=== PATIENT | female | born 1985 | race Two or more races ===

== ENCOUNTER 2024-05-05 06:11 | Emergency (ER) | payer OTHER, SELFPAY ==
[2024-05-05 06:13] VITALS: BP 110/80
--- NOTE | 2024-05-05 06:34 | ED.GENMED ---
History of Present Illness
General
Chief Complaint: Abdominal Pain
Source: patient
Exam Limitations: none
Time Seen by Provider: 05/05/24 06:30
History of Present Illness
History of Present Illness:
See MDM
Past History
Past History
ED Past Medical History: None
ED Past Surgical History: Other (Bariatric surgery)
Social History
Tobacco: Non-smoker
Alcohol: None
Phy Exam
Physical Exam
Physical Exam:
See MDM
Course
Orders/Labs/Results
Orders:
Orders
05/05/24 06:33
CT Abd/pel Without Iv Or Oral Urgent
Comment:
Reason For Exam: R flank and RLQ pain
Ketorolac [Toradol] 30 mg IV NOW STA
Morphine Sulfate 4 mg IV NOW STA
Ondansetron Injectable [Zofran] 4 mg IV NOW STA
05/05/24 06:34
Test Result ONCE
05/05/24 06:51
Complete Blood Count/With Diff Urgent
Comprehensive Metabolic Panel Urgent
HCG, Serum Qualitative Screen Urgent
05/05/24 08:23
Urinalysis Reflex To Culture Urgent
Date Specimen was Collected: 05/05/24
Time Specimen was Collected: 08:09
Urine Microscopic Reflex Cult Urgent
Urine Culture Urgent
BARRY Source: U
Specimen Description:
Date Specimen was Collected: 05/05/24
Time Specimen was Collected: 08:09
05/05/24 08:26
Morphine Sulfate 4 mg IV NOW STA
Abnormal Lab Results
05/05/24 05/05/24
06:51 08:23
Hgb 11.1 L g/dL
(12.0-16.0)
Hct 35.6 L %
(37.0-47.0)
MCV 74.6 L fL
(81.0-99.0)
MCH 23.3 L pg
(27.0-31.0)
MCHC 31.2 L g/dL
(33.0-37.0)
RDW 15.2 H %
(11.5-14.5)
Neutrophils % 39.0 L %
(42.2-75.2)
BUN 20 H mg/dl
(7-17)
Glucose 106 H mg/dl
(70-99)
Urine Ketones Trace A
(Negative)
Ur Occult Blood Reflex 3+ A
(Negative)
Urine Bilirubin 1+ A
(Negative)
Urine RBC 7-10 A /HPF
(0-2)
Urine Bacteria (Reflex) Moderate A
(Negative)
05/05/24 06:51
05/05/24 06:51
Vital Signs
Initial and Last Documented VS:
Initial Vital Signs
Pulse Resp BP Pulse Ox
61 16 110/80 100
05/05/24 06:13 05/05/24 06:13 05/05/24 06:13 05/05/24 06:13
Last Documented Vital Signs
Temp Pulse Resp BP Pulse Ox
98.2 F 58 17 106/71 97
05/05/24 06:17 05/05/24 08:34 05/05/24 08:34 05/05/24 08:34 05/05/24 08:34
MDM/Problems Addressed
Differential Diagnosis Includes:
HPI and MDM Narrative:
38-year-old female presenting for evaluation of sudden onset of right flank pain. Patient localizes the pain to the right lower quadrant. She also complains of right back pain. This is associated with nausea. She denies urinary symptoms or
fevers.
Given the location of pain and the sudden onset, will obtain CT to rule out evidence of kidney stone
Physical exam
General: Mildly uncomfortable
HEENT: protecting airway
Neck: appears supple
CV: No evidence of cyanosis
Resp: No accessory muscle use
Abd: Non-distended. Point tenderness to right lower quadrant. No rebound
Extremities: No deformities
Neuro: alert
Psych: Normal affect
Skin: Intact
Problems Addressed including Acute and Chronic Conditions affecting care:
1. Right flank and abdominal pain
Acuity: acute
Prognosis: stable
Details: Given the sudden onset of pain, will obtain CT to rule out kidney stone
Updates
CT consistent with 2 mm obstructive right kidney stone. Patient feeling better
Differential Diagnosis (but not limited to): Kidney stone, pyelonephritis, acute appendicitis, colitis
Testing considered: CT with contrast
Drug therapy (if applicable): OTC meds, please see d/c instruction regarding Rx drugs
Amount and/or Complexity of Data Reviewed
Clinical info obtained from: Patient
External data reviewed: N/A
Labs I independently reviewed (but not limited to): White blood cell count normal
Radiology: the CT scan was personally and independently reviewed. In addition, official CT report reviewed.
Pulse Ox: not hypoxic
EKG independently reviewed: N/A
[employer] Sales Representative: N/A
Critical Care: N/A
Risk of Complication:
Social Determinants of health: Good social support
Discussed with other providers: N/A
Escalation of Care includes Admit/Obs: After being observed in the Emergency Department, pt stable for discharge.
Occasional wrong word or 'sound a like' substitutions may have occurred due to the inherent limitations of voice recognition software. Read the chart carefully and recognize, using context, where substitutions have occurred.
*Critical Care Note
Total Time (30-74mins, 75-104mins- exclusive of procedures): Not Applicable
ED Attending Note
-
Portions of this chart may have been created with voice recognition software.� Occasional wrong word or��sound alike� substitutions may have occurred due to the inherent limitations of voice recognition software.
Discharge Plan
Departure
Patient Disposition: Home (Routine Discharge)
Date of Disposition: 05/05/24
Time of Disposition: 09:08
Patient with high blood pressure during this ER visit?: No
Discharge Problem:
Kidney stone on right side
Instructions: Kidney Stones (DC)
Prescriptions:
New
oxycodone-acetaminophen [Percocet] 5-325 mg Tablet
1 tab PO Q6HPRN PRN (Reason: pain) Qty: 10 0RF
tamsulosin [Flomax] 0.4 mg Capsule
0.4 mg PO DAILY Qty: 14 0RF
diclofenac potassium 50 mg tablet
50 mg PO BID Qty: 20 0RF
ondansetron 4 mg Tablet,Disintegrating
4 mg PO BIDPRN PRN (Reason: nausea/vomiting) Qty: 10 0RF
Referrals:
NONE,* [Family Provider] -
Ronald Peoples MD [Active] -
Activity Restrictions/Additional Instructions:
Please return for any worsening symptoms.
You may return at any time if you have further concerns.
Please follow up with your doctor at the first available appointment, preferably this week.
Please make an appointment with the urologist if symptoms persist.
Thank you for choosing [facility].
Interventions
Interventions:
*Risk Screen - Suicide Last Done: 05/05/24 06:13
*General Assessment Last Done: 05/05/24 06:13
*Neglect/Abuse Screening Last Done: 05/05/24 06:13
*ED COVID-19 Vaccine History Last Done: 05/05/24 06:58
DG-Sxafpl-Ljamydtcnx Assessment Last Done: 05/05/24 06:58
Discharge Date and Time
Print Language: PORTUGUESE
[2024-05-05] MEDS: MORPHINE SULFATE 4 MG IV ×2 (06:50→08:31)
[2024-05-05] MEDS: ZOFRAN 4 MG IV (06:50)
[2024-05-05] MEDS: TORADOL 30 MG IV (06:50)
[2024-05-05 06:58] VITALS: BP 115/82
[2024-05-05 07:00] LABS: % Basophils 1.4 % (0-2); % Eosinophils 4.6 % (0-6); % Immature Granulocytes 0.2 % (0-0.5); % Lymphocytes 48.1 % (20.5-51.1); % Monocytes 6.7 % (1.7-9.3); Absolute Basophils 0.1 10^3/uL (0-0.2); Absolute Eosinophils 0.3 10^3/uL (0-0.7); Absolute Lymphocytes 2.8 10^3/uL (1.2-3.4); Absolute Monocytes 0.4 10^3/uL (0.1-0.6); Absolute Neutrophils 2.3 10^3/uL (1.4-6.5); Hematocrit 35.6 % (37.0-47.0); Hemoglobin 11.1 g/dL (12.0-16.0); Mean Corp Hgb Conc. 31.2 g/dL (33.0-37.0); Mean Corpuscular Hgb 23.3 pg (27.0-31.0); Mean Corpuscular Volume 74.6 fL (81.0-99.0); Nucleated Red Blood Cells % 0 %; Platelet Count 238 10^3/uL (130-400); Red Blood Cell Count 4.77 10^6/uL (4.20-5.40); Red Cell Dist. Width 15.2 % (11.5-14.5); White Blood Cell Count 5.8 10^3/uL (4.8-10.8)
[2024-05-05 07:31] LABS: HCG, Serum Qualitative Screen Negative
[2024-05-05 07:38] LABS: ALT (SGPT) 15 U/L (0-35); AST (SGOT) 18 U/L (14-36); Albumin 4.4 g/dl (3.5-5.0); Alkaline Phosphatase 47 U/L (38-126); Blood Urea Nitrogen 20 mg/dl (7-17); Calcium 9.3 mg/dl (8.4-10.2); Carbon Dioxide 29 mmol/L (22-30); Chloride 103 mmol/L (98-107); Glucose 106 mg/dl (70-99); Potassium 4.2 mmol/L (3.5-5.1); Sodium 142 mmol/L (135-145); Total Bilirubin 0.6 mg/dl (0.2-1.3); eGFR > 60.00
[2024-05-05 08:34] VITALS: BP 106/71
[2024-05-05 08:57] LABS: Urine Albumin Trace (Neg - Trace); Urine Bilirubin 1+ (Negative); Urine Character Very Cloudy (Clear); Urine Color Yellow; Urine Glucose Negative (Negative); Urine Ketone Trace (Negative); Urine Leukocyte Negative (Negative); Urine Nitrite Negative (Negative); Urine Occult Blood 3+ (Negative); Urine Urobilinogen 1+ (Neg - 1+)
[2024-05-05 09:07] LABS: Urine Amorphous Seen; Urine Bacteria Moderate (Negative); Urine White Cell None Seen /HPF (0-5)
== END 2024-05-05 09:32 | disposition home or self-care (01) ==
LOC: EMR 06:11
PROVIDERS: EMERGENCY PHYSICIAN Student in an Organized Health Care Education/Training Program
DX: N20.0 Calculus of kidney (principal); R11.0 Nausea; Z98.84 Bariatric surgery status
CPT/HCPCS: 99284; 96374; 96375 ×2; 96376; 74176; 80053; 81003; 81015; 84703; 85025; 87086

== ENCOUNTER 2025-05-20 17:05 | Emergency (ER) | payer OTHER, SELFPAY ==
[2025-05-20 17:11] VITALS: BP 96/59
--- NOTE | 2025-05-20 18:54 | ED.GENMED ---
History of Present Illness
General
Chief Complaint: Skin Problem
Source: patient
Exam Limitations: none
Time Seen by Provider: 05/20/25 18:43
History of Present Illness
History of Present Illness:
39yoF with no significant past medical history presenting for evaluation of a rash. Patient reports a rash localized to her left forearm for the past several months. The rash is itchy with a burning discomfort. The rash seems to get worse when
exposed to the sun. The rash is particularly worse due to the sun exposure while driving. 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 She has been applying hydrocortisone
cream 1-2 times daily which helps with the itching temporarily. She is otherwise asymptomatic and denies any fevers.
Past History
Past History
ED Past Medical History: None
ED Past Surgical History: Other (Bariatric surgery)
Social History
Tobacco: Non-smoker
Alcohol: None
Phy Exam
General Physical Exam
General Presentation: well appearing and no apparent distress
General Skin: warm and dry
General Habitus: normal
General Mental: alert
ENT Exam
ENT Exam: normocephalic
Pulmonary Exam
Pulmonary Exam: no respiratory distress
Neurological Exam
Neurological Exam: alert
Skin Exam
Skin Exam: warm/dry and other (Localized rash noted to L forearm. Scattered thickened raised areas with redness, scales, and dry skin. No vesicular lesions. No signs of cellulitis. )
Psychiatric Exam
Psychiatric Exam: normal mood/affect
Course
Vital Signs
Initial and Last Documented VS:
Initial Vital Signs
Temp Pulse Resp BP Pulse Ox
98.2 F 74 16 96/59 99
05/20/25 17:11 05/20/25 17:11 05/20/25 17:11 05/20/25 17:11 05/20/25 17:11
Last Documented Vital Signs
Temp Pulse Resp BP Pulse Ox
98.2 F 74 16 96/59 99
05/20/25 17:11 05/20/25 17:11 05/20/25 17:11 05/20/25 17:11 05/20/25 18:55
MDM/Problems Addressed
Differential Diagnosis Includes:
39yoF here with a L forearm rash x several months that worsens with sun exposure. C/o itching, burning skin. Hydrocortisone cream helps temporarily. Otherwise asymptomatic and vitals are stable. On exam, that are scattered areas of red, dry, scaly
skin. No vesicular lesions or signs of infection. No signs of acute life-threatening rash. She was advised to use Eucerin cream and f/u with dermatology.
*Pulse Oximetry
SaO2: 99
Oxygen Mode of Delivery: Room air
Patient hypoxic: no
*Critical Care Note
Total Time (30-74mins, 75-104mins- exclusive of procedures): Not Applicable
ED Attending Note
-
Portions of this chart may have been created with voice recognition software.� Occasional wrong word or��sound alike� substitutions may have occurred due to the inherent limitations of voice recognition software.
Discharge Plan
Departure
Patient Disposition: Home (Routine Discharge)
Date of Disposition: 05/20/25
Time of Disposition: 18:56
Patient with high blood pressure during this ER visit?: No
Discharge Problem:
Rash and nonspecific skin eruption
Instructions: Skin rash - ED (DC)
Prescriptions:
No Action
oxycodone-acetaminophen [Percocet] 5-325 mg Tablet
1 tab PO Q6HPRN PRN (Reason: pain) Qty: 10 0RF
tamsulosin [Flomax] 0.4 mg Capsule
0.4 mg PO DAILY Qty: 14 0RF
diclofenac potassium 50 mg tablet
50 mg PO BID Qty: 20 0RF
ondansetron 4 mg Tablet,Disintegrating
4 mg PO BIDPRN PRN (Reason: nausea/vomiting) Qty: 10 0RF
Referrals:
NONE,* [Family Provider, Internal Medicine]
Skyler Acuna MD [Active, Dermatology]
Activity Restrictions/Additional Instructions:
Apply Eucerin cream daily. You may continue using hydrocortisone cream for itching.
Please call tomorrow to schedule a follow-up appointment with dermatology.
Interventions
Interventions:
*Risk Screen - Suicide Last Done: 05/20/25 17:11
*General Assessment Last Done: 05/20/25 17:11
*Neglect/Abuse Screening Last Done: 05/20/25 19:07
*ED- Fall Risk Assessment Last Done: 05/20/25 19:07
*ED COVID-19 Vaccine History Last Done: 05/20/25 17:11
*ED Influenza Vaccine History Last Done: 05/20/25 17:11
*Nursing Disposition Last Done: 05/20/25 19:07
ED-Skin Assessment Last Done: 05/20/25 19:07
Discharge Date and Time
Discharge Date/Time: 05/20/25 19:09
Print Language: BARBADIAN
== END 2025-05-20 19:09 | disposition home or self-care (01) ==
LOC: EMR 17:05
PROVIDERS: EMERGENCY PHYSICIAN Emergency Medicine
DX: R21 Rash and other nonspecific skin eruption (principal); L29.9 Pruritus, unspecified
CPT/HCPCS: 99282